=== PATIENT | female | born 1960 | race Native Hawaiian/Other Pacific Islander ===

== ENCOUNTER → 2019-12-31 | Outpatient (CLI) | payer OTHER, MEDICAID ==
--- NOTE | 2019-12-31 13:02 | Diagnostic Imaging Report ---
INDICATION: Low back pain. TIME OF EXAM: 12:36 PM FINDINGS: Frontal and lateral views of the lumbar spine were obtained. Curvature is normal. There is grade 1 spondylolisthesis of L5 on S1. There may be pars defects at this level. Vertebral body heights are maintained. No acute compression fracture is seen. There is degenerative disc disease lower thoracic spine as well as at L5-S1 level with disc space narrowing. There is marked lower lumbar facet arthropathy. IMPRESSION: Lower lumbar spondylosis and spondylolisthesis. There are probable pars defects at L5-S1 level. No acute bony abnormality is detected. Dictated by: Dictated on workstation # [id number]
== END ==
LOC: RAD FS 12:28
PROVIDERS: ATTEND Nurse Practitioner
DX: S39.92XA Unspecified injury of lower back, initial encounter (principal); M47.816 Spondylosis without myelopathy or radiculopathy, lumbar region; X58.XXXA Exposure to other specified factors, initial encounter
CPT/HCPCS: 72100

== ENCOUNTER → 2020-01-23 | Outpatient (CLI) | payer MEDICAID ==
--- NOTE | 2020-01-23 14:53 | Diagnostic Imaging Report ---
INDICATION: Left knee pain. TIME OF EXAM: 02:20 p.m. FINDINGS: Three views of the left knee were obtained. Alignment is normal. Joint spaces are well maintained. The articular surfaces are smooth. No fracture, dislocation, or effusion is seen. IMPRESSION: No acute bony abnormality is detected. Dictated by: Dictated on workstation # [id number]
== END ==
LOC: RAD FS 13:51
PROVIDERS: ATTEND Nurse Practitioner
DX: M25.562 Pain in left knee (principal)
CPT/HCPCS: 73562

== ENCOUNTER → 2020-06-29 | Outpatient (CLI) | payer MEDICAID | LOC: RAD 12:30 | PROVIDERS: ATTEND Nurse Practitioner | DX: M54.40 Lumbago with sciatica, unspecified side (principal); M54.2 Cervicalgia; M54.6 Pain in thoracic spine ==

== ENCOUNTER → 2020-10-20 | Outpatient (CLI) | payer MEDICAID ==
[~2020-10-20] MED LIST: CATHETER FLUSH 10 ML SYR IV PRN; HOLD METFORMIN - RECEIVED CONTRAST 20 ML VIAL IV SCH; IOHEXOL 350 MG/ML 100 ML (OMNIPAQUE 350) VIAL IV ONE; NS 100 ML (IVPB) BAG IV ONE
[2020-10-20 11:38] LABS: BUN/CREATININE RATIO 16; CREATININE SERUM 0.68 MG/DL (0.60-1.30); GFR ESTIMATED > 60
--- NOTE | 2020-10-20 12:33 | Diagnostic Imaging Report ---
PROCEDURE: CT abdomen and pelvis with contrast. TECHNIQUE: Multiple contiguous axial images were obtained through the abdomen and pelvis after administration of intravenous contrast. Auto Exposure Controls were utilized during the CT exam to meet ALARA standards for radiation dose reduction. All CT scans use one or more of the following dose optimizing techniques: automated exposure control, MA and/or KvP adjustment based on patient size and exam type or iterative reconstruction. INDICATION: Generalized abdominal pain, greatest in left lower quadrant. 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 COMPARISON: No prior studies are available for comparison. FINDINGS: There is some parenchymal consolidation in the left lower lobe suggestive of pneumonia or atelectasis. No discrete liver mass is detected. Gallbladder is surgically absent. No biliary ductal dilatation is seen. Pancreas and spleen are unremarkable. No adrenal mass is identified. Kidneys are unremarkable. Aorta is non-aneurysmal. No central, retroperitoneal or mesenteric lymphadenopathy is detected. Small and large bowel loops appear to be normal caliber. There is no evidence of obstruction. There is moderate stool in the colon. No mass lesion is identified. No definite pelvic lymphadenopathy is identified. Uterus appears to be surgically absent. Bladder is unremarkable. Bony structures are nonacute. IMPRESSION: 1. Left lower lobe pneumonia versus atelectasis. 2. No evidence of abdominal or pelvic lymphadenopathy. No mass lesion is detected. Dictated by: Dictated on workstation # [id number]
== END ==
LOC: RAD 10:58
PROVIDERS: ATTEND Surgery
DX: R10.84 Generalized abdominal pain (principal)
CPT/HCPCS: 36415; 74177; 82565; 84520

== ENCOUNTER 2020-10-25 05:42 | Outpatient (RCR) | payer MEDICAID ==
[2020-10-26] MEDS ORDERED: HYDR-3820 PO (14:44)
[2020-10-26] MEDS ORDERED: MULT-1136 PO (14:44)
[2020-10-26] MEDS ORDERED: ALBU1.25 INH (14:44)
[2020-10-26] MEDS ORDERED: OMEP40CA27 PO (14:44)
[2020-10-26] MEDS ORDERED: BUDE10.2 IH (14:44)
[2020-10-26] MEDS ORDERED: IBUP-2185 PO (14:44)
== END 2020-10-26 15:12 | disposition home or self-care (01) ==
LOC: PREOP 05:42
PROVIDERS: ATTEND Surgery
DX: Z01.812 Encounter for preprocedural laboratory examination (principal); K21.9 Gastro-esophageal reflux disease without esophagitis; R63.4 Abnormal weight loss

== ENCOUNTER 2020-11-01 08:01 | Day surgery (SDC) | payer MEDICAID ==
[~2020-11-01] VITALS: Ht 160.2 cm; Wt 54.4 kg
[~2020-11-01 08:01] MED LIST changes: +ALBU1.25 INH; +BUDE10.2 IH; -CATHETER FLUSH 10 ML SYR IV PRN; -HOLD METFORMIN - RECEIVED CONTRAST 20 ML VIAL IV SCH; +HYDR-3820 PO; +IBUP-2185 PO; -IOHEXOL 350 MG/ML 100 ML (OMNIPAQUE 350) VIAL IV ONE; +MULT-1136 PO; -NS 100 ML (IVPB) BAG IV ONE; +OMEP40CA27 PO
[2020-11-01] MEDS ORDERED: LACTATED RINGERS 1,000 ML IV ONE (08:03)
[2020-11-01 08:10] VITALS: BP 121/60
[2020-11-01] MEDS ORDERED: LACTATED RINGERS 1,000 ML IV STA (08:15)
[2020-11-01] MEDS ORDERED: RT-ALBUTEROL SULF 2.5 MG/3 ML PRE-MIX VIAL INH ONE ×2 (08:15→08:45)
[2020-11-01] MEDS ORDERED: HURRICAINE EXT TUBE (BENZOCAINE) XX PRN (08:15)
--- NOTE | 2020-11-01 08:28 | Progress Note-Pre Operative ---
Pre-Operative Progress Note H&P Reviewed The H&P was reviewed, patient examined and no changes noted. Time Seen by Provider: 08:25 Date H&P Reviewed: Nov 01, 2020 Time H&P Reviewed: 08:26 Pre-Operative Diagnosis: Hx of colon polyps, Abd pain, Gastritis, N/V KRISTEN EDMONDSON DO Nov 01, 2020 08:28
[2020-11-01] MEDS ORDERED: RT-ALBUTEROL SULF 2.5 MG/3 ML PRE-MIX VIAL ONE (08:29)
[2020-11-01] MEDS ORDERED: MIDAZOLAM 2 MG/2 ML (VERSED) VIAL ONE (08:49)
[2020-11-01] MEDS ORDERED: HURRICAINE EXT TUBE (BENZOCAINE) ONE (09:04)
[2020-11-01] MEDS ORDERED: fentaNYL INJECTION 100 MCG/2 ML AMP ONE (09:43)
[2020-11-01] MEDS ORDERED: proPOfol 200 MG/20 ML (DIPRIVAN) VIAL IV ONE (09:43)
[2020-11-01 09:55] VITALS: BP 141/82
[2020-11-01 10:00] VITALS: BP_SYST 112; BP_SYST 123; BP_DIAS 70; BP_DIAS 77
--- NOTE | 2020-11-01 10:01 | Progress Note-Post Operative ---
Post-Operative Progess Note Surgeon (s)/Sewage Plant Attendant (s) Surgeon KRISTEN EDMONDSON DO Sewage Plant Attendant: CONI Boykin Pre-Operative Diagnosis Hx of colon polyps, Abd pain, Gastritis, N/V Post-Operative Diagnosis Gastritis Esophagitis Hiatal Hernia Polyps Diverticula hemorrhoids Procedure & Operative Findings Date of Procedure 11/01/20 Procedure Performed/Findings EGD with bx Colon with snare Anesthesia Type IV sedation by TIRE SPECIALIST Estimated Blood Loss Estimated blood loss (mL): scant Specimens/Packing Specimens Removed antral bx GE jxn bx Asc colon polyp sigmoid polyp KRISTEN EDMONDSON DO Nov 01, 2020 10:01
--- NOTE | 2020-11-01 10:02 | Endoscopy Discharge Instruct ---
Endo Procedure/Findings Findings 1.: Hiatal Hernia, Gastritis 3.: Diverticulosis 4.: Internal Hemorrhoids Discharge Instructions - Activity: You might feel a little sleepy until tomorrow. This is due to the medicine you received to relax you. Until tomorrow, you should: NOT drive a car, operate machinery or power tools. NOT drink any alcoholic beverages. NOT make any important decisions or sign importortant papers. Do not return to work until tomorrow, unless otherwise instructed. Resume previous activities tomorrow. Diet: Start by taking liquids. If you tolerate liquids, advance to solid food. 1.: Colonscopy in 5 years, EGD in 1 year Notify Physician - If you experience excessive bleeding, unusual abdominal pain, fever, or chest pain, contact your doctor immediately. KRISTEN EDMONDSON DO Nov 01, 2020 10:02
[2020-11-01 10:30] VITALS: BP 120/74
[2020-11-01 10:40] VITALS: BP 120/74
--- NOTE | 2020-11-01 12:01 | Anesthesia-General Post-Op ---
MAC Patient Condition Mental Status/LOC: Same as Preop Cardiovascular: Satisfactory Nausea/Vomiting: Absent Respiratory: Satisfactory Pain: Controlled Complications: Present Post Op Complications Complications Patient has a persistent, dry cough that seems to be from irritation to the back of her throat. We have offered ice chips and patient sips on sprite. The cough did decrease in frequency as she recovered. VSS. SaO2 >92% on RA. Patient upset as she has been told there is a mass in her stomach; however, Dr. Santiago did not find one. She states she is going to get a second opinion. Follow Up Care/Instructions Patient Instructions None needed. Anesthesiology Discharge Order Discharge Order Stable vital signs, no apparent adverse anesthesia problems. No complications reported per nursing. RADHA HOLDEN CRNA Nov 01, 2020 12:01
--- NOTE | 2020-11-01 23:04 | OPERATIVE REPORT ---
DATE OF SERVICE: PREOPERATIVE DIAGNOSES: History of colon polyps with some abdominal pain, gastritis and nausea and vomiting and the patient thinks she has an abdominal mass. FINDINGS: The patient had some gastritis, esophagitis and a hiatal hernia. In the colon, she had polyps, diverticula, internal hemorrhoids. PROCEDURES: 1. EGD with biopsy. 2. Colonoscopy with snare polypectomy. SURGEON: Yon Santiago DO HOUSING MANAGEMENT REPRESENTATIVE: [place] MS[employer]. SPECIMEN: Biopsy of the antrum, biopsy of the GE junction, 2 polyps from the ascending colon and one polyp from the sigmoid colon. BLOOD LOSS: Scant. FLUIDS: Per anesthesia. POSTOPERATIVE CONDITION: Stable. INDICATION FOR PROCEDURE: The patient is a 59-year-old female, who has a history of colon polyps. She also has been having some increasing abdominal pain with some gastritis, nausea, vomiting and was told that she may have abdominal mass. FINDINGS: The patient had gastritis, esophagitis, hiatal hernia, colon polyps, diverticula, internal hemorrhoids. PROCEDURE NOTE: After informed consent was obtained, the patient was brought to the endoscopy suite, placed in bed in left lateral decubitus position. She was administered IV sedation by the PROFESSOR OF COUNSELING, who then monitored her vitals the entire time, heart rate, blood pressure and pulse ox, started with the EGD, placing scope down the mouth through the esophagus and into the stomach. In the stomach, saw some gastritis, pushed into the duodenum. Duodenum looked fine. Pulled back and did a biopsy of the antrum, retroflexed the scope, saw hiatal hernia then pulled the scope up into the GE junction, noted some mild esophagitis, took a biopsy, then suctioned all the air out of the stomach and then pulled the scope up the esophagus and out the mouth. Switched camera, switched gloves, went down below, started the colonoscopy. Pushed all the way into about 100 cm, able to get to the cecum, took a picture of appendiceal orifice, noted the ileocecal valve and then slowly withdrew the scope insufflating to look circumferentially james in the ascending colon, saw 2 polyps, able to do snare polypectomies of these and then continued up to the hepatic flexure, then down the transverse colon, splenic flexure, into the descending colon and then down into the sigmoid. In the sigmoid, saw another small polyp, did another snare polypectomy of this and then noted some diverticula and then continued down into the rectum, retroflexed in rectal vault, saw some minimal internal hemorrhoids, took a picture and then removed the scope. The patient tolerated the procedure. She was recovered in endoscopy suite. Job ID: [id number] DocumentID: [id number] Dictated Date: 11/01/2020 18:34:44 Picker Packer Date: 11/01/2020 23:03:19 Dictated By: YON SANTIAGO DO
== END 2020-11-01 10:45 | disposition home or self-care (01) ==
LOC: ENDO 08:01
PROVIDERS: ATTEND Surgery
DX: D12.2 Benign neoplasm of ascending colon (principal); D12.5 Benign neoplasm of sigmoid colon; K44.9 Diaphragmatic hernia without obstruction or gangrene; K64.8 Other hemorrhoids; K57.30 Diverticulosis of large intestine without perforation or abscess without bleeding; F41.9 Anxiety disorder, unspecified; F32.9 Major depressive disorder, single episode, unspecified; J44.9 Chronic obstructive pulmonary disease, unspecified; K29.70 Gastritis, unspecified, without bleeding; F17.210 Nicotine dependence, cigarettes, uncomplicated; Z79.51 Long term (current) use of inhaled steroids; Z79.899 Other long term (current) drug therapy; Z88.2 Allergy status to sulfonamides; Z88.5 Allergy status to narcotic agent; Z86.010 Personal history of colon polyps; Z90.710 Acquired absence of both cervix and uterus; Z80.9 Family history of malignant neoplasm, unspecified
CPT/HCPCS: 88305; 94640